=== PATIENT | male | born 2000 | race Caucasian/White ===

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

== ENCOUNTER 2023-01-25 17:59 | Emergency (ER) | payer BC, MEDICAID, OTHER ==
[~2023-01-25] VITALS: Ht 190.5 cm; Wt 99.3 kg
[~2023-01-25 17:59] MED LIST changes: -CETI-101 PO; +CETI-89 PO
[2023-01-25 19:16] LABS: SARS-CoV-2, RNA, NAAT NEGATIVE SARS CoV-2 (NEGATIVE)
[2023-01-25 19:21] LABS: INFLUENZA TYPE A Negative For Type A (NEGATIVE); INFLUENZA TYPE B Negative For Type B (NEGATIVE)
[2023-01-25 19:30] LABS: RAPID GROUP A STREP negative (NEGATIVE)
[2023-01-25] MEDS ORDERED: 0.9%NACL 1000ML 1,000 ML IV ONE (20:30)
[2023-01-25] MEDS ORDERED: ACETAMINOPHEN 500 MG TABLET PO ONE (20:30)
[2023-01-25] MEDS ORDERED: ONDANSETRON 4MG INJ IVP ONE (20:30)
[2023-01-25 20:59] LABS: BASOPHILS # (AUTO) 0.06 K/uL (0.00-0.20); BASOPHILS % (AUTO) 0.8 % (0.0-5.0); EOSINOPHILS # (AUTO) 0.36 K/uL (0.00-0.70); HEMATOCRIT 44.5 % (42-54); IMMATURE GRANULOCYTE ABSOLUTE 0.02 K/uL (0-1); LYMPHOCYTES # (AUTO) 1.6 K/uL (1.0-4.8); MEAN CORPUSCULAR HEMOGLOBIN 27.9 pg (27.0-33.0); MEAN CORPUSCULAR HGB CONC 32.6 g/dL (32.0-36.0); MEAN CORPUSCULAR VOLUME 85.6 fL (79-99); MONOCYTES # (AUTO) 0.8 K/uL (0.1-1.0); MONOCYTES % (AUTO) 10.7 % (3.0-13.0); NEUTROPHILS # (AUTO) 4.4 K/uL (1.8-7.7); NEUTROPHILS % (AUTO) 61.2 % (40.0-77.0); PLATELET COUNT (AUTO) 226 K/uL (130-400); RED CELL DISTRIBUTION WIDTH 12.7 % (11.0-15.5); WHITE BLOOD COUNT (AUTO) 7.2 K/uL (4.8-10.8)
[2023-01-25 21:00] LABS: APPEARANCE,URINE CLEAR (CLEAR); BILIRUBIN,URINE NEGATIVE (NEGATIVE); COLOR,URINE COLORLESS (YELLOW); GLUCOSE, URINE (UA) NEGATIVE (NEGATIVE); KETONES,URINE NEGATIVE (NEGATIVE); LEUKOCYTE ESTERASE ,URINE NEGATIVE Leu/uL (NEGATIVE); NITRATE,URINE NEGATIVE (NEGATIVE); OCCULT BLOOD,URINE NEGATIVE (NEGATIVE); PH,URINE 7.5 (5.0-8.0); PROTEIN,URINE NEGATIVE (NEGATIVE); UROBILINOGEN,URINE 0.2 mg/dL (0.2-1.0)
[2023-01-25 21:01] LABS: ADD UA MICROSCOPIC YES
[2023-01-25 21:02] LABS: SQUAMOUS EPITHELIAL CELL,UR RARE /HPF (0-2)
[2023-01-25 21:13] LABS: CREATININE 1.2 mg/dL (0.5-1.5); POTASSIUM 3.5 mmol/L (3.5-5.1)
[2023-01-25 21:17] LABS: ALBUMIN 4.2 g/dL (3.5-5.0); BILIRUBIN,TOTAL 0.5 mg/dL (0.2-1.0); TOTAL PROTEIN, SERUM 7.4 g/dL (6.0-8.3)
[2023-01-25] MEDS ORDERED: ALBUTEROL 0.083% 2.5 MG/3 ML INH IH ONE (21:30)
[2023-01-25] MEDS ORDERED: CEFTRIAXONE 1G VIAL IVPB ONE (21:30)
[2023-01-25 21:34] VITALS: PULSE 71; RESP 17
[2023-01-25] MEDS ORDERED: AMOX1TAB16 PO (21:49)
[2023-01-25] MEDS ORDERED: ALBU90AE2 IH (21:49)
[2023-01-25 22:00] VITALS: BP 117/70; PULSE 80; RESP 18; O2SAT 99
== END 2023-01-25 22:05 | disposition home or self-care (01) ==
LOC: EDH 17:59
DX: H66.91 Otitis media, unspecified, right ear (principal); J45.901 Unspecified asthma with (acute) exacerbation; F41.9 Anxiety disorder, unspecified; F32.A Depression, unspecified; Z20.822 Contact with and (suspected) exposure to COVID-19; Z79.899 Other long term (current) drug therapy; Z98.890 Other specified postprocedural states
CPT/HCPCS: 99284; 96365; 87635; 96361; 96375; 80053; 83690; 85025; 87880; 87804 ×2; 81001; 36415; 94640; C9803; J0696; J2405

== ENCOUNTER 2023-02-26 20:24 | Emergency (ER) | payer OTHER ==
[~2023-02-26] VITALS: Ht 190.5 cm; Wt 96.6 kg
[~2023-02-26 20:24] MED LIST changes: +ALBU90AE2 IH; +AMOX1TAB16 PO
[2023-02-26] MEDS ORDERED: SOLU-MEDROL 125MG VIAL IVP ONE (22:00)
[2023-02-26] MEDS ORDERED: BUDE52H IH (22:27)
[2023-02-26] MEDS ORDERED: METH4TAB3 PO (22:27)
[2023-02-26 22:58] VITALS: BP 114/52; PULSE 78; RESP 14; O2SAT 97
== END 2023-02-26 23:16 | disposition home or self-care (01) ==
LOC: EDH 20:24
DX: J45.901 Unspecified asthma with (acute) exacerbation (principal); F41.9 Anxiety disorder, unspecified; Z79.899 Other long term (current) drug therapy; Z98.890 Other specified postprocedural states
CPT/HCPCS: 99283; 96374; J2930

== ENCOUNTER 2023-10-13 17:17 | Emergency (ER) | payer BC ==
[~2023-10-13] VITALS: Ht 190.5 cm; Wt 95.3 kg
[~2023-10-13 17:17] MED LIST changes: -ALBU90AE2 IH; +ALBU90AE3 IH; +BUDE52H IH; +METH4TAB3 PO
[2023-10-13 17:57] LABS: APPEARANCE,URINE CLEAR (CLEAR); BILIRUBIN,URINE NEGATIVE (NEGATIVE); COLOR,URINE YELLOW (YELLOW); GLUCOSE, URINE (UA) NEGATIVE (NEGATIVE); KETONES,URINE 5 mg/dL (NEGATIVE); LEUKOCYTE ESTERASE ,URINE NEGATIVE Leu/uL (NEGATIVE); NITRATE,URINE NEGATIVE (NEGATIVE); OCCULT BLOOD,URINE NEGATIVE (NEGATIVE); PROTEIN,URINE 20 mg/dL (NEGATIVE); UROBILINOGEN,URINE 0.2 mg/dL (0.2-1.0)
[2023-10-13 17:58] LABS: ADD UA MICROSCOPIC YES
[2023-10-13 18:00] LABS: BACTERIA,URINE RARE /HPF (None Seen); MUCUS,URINE RARE LPF (None Seen); RBC,URINE 0-1 /HPF (0-1); WBC,URINE 0-1 /HPF (0-1)
[2023-10-13] MEDS: 0.9%NACL 1000ML 1,000 ML IV ONE (18:00)
[2023-10-13] MEDS: ONDANSETRON 4MG INJ IVP ONE ×2 (18:00→22:59)
[2023-10-13 18:05] LABS: AMPHET/METH SCREEN,URINE NEGATIVE (NEGATIVE); BARBITURATE SCREEN, URINE NEGATIVE (NEGATIVE); BENZODIAZEPINES SCREEN,URINE NEGATIVE (NEGATIVE); CANNABINOID SCREEN,URINE POSITIVE (NEGATIVE); COCAINE SCREEN,URINE NEGATIVE (NEGATIVE); OPIATE SCREEN,URINE NEGATIVE (NEGATIVE); PHENCYCLIDINE SCREEN,URINE NEGATIVE (NEGATIVE)
[2023-10-13 18:25] LABS: BASOPHILS # (AUTO) 0.08 K/uL (0.00-0.20); BASOPHILS % (AUTO) 1.5 % (0.0-5.0); EOSINOPHILS # (AUTO) 0.13 K/uL (0.00-0.70); EOSINOPHILS % (AUTO) 2.4 % (0.0-8.0); HEMATOCRIT 45.6 % (42-54); IMMATURE GRANULOCYTE ABSOLUTE 0.01 K/uL (0-1); LYMPHOCYTES # (AUTO) 1.9 K/uL (1.0-4.8); LYMPHOCYTES % (AUTO) 34.4 % (21.0-51.0); MEAN CORPUSCULAR HGB CONC 33.3 g/dL (32.0-36.0); MONOCYTES # (AUTO) 0.5 K/uL (0.1-1.0); MONOCYTES % (AUTO) 8.6 % (3.0-13.0); NEUTROPHILS # (AUTO) 2.9 K/uL (1.8-7.7); NEUTROPHILS % (AUTO) 52.9 % (40.0-77.0); PLATELET COUNT (AUTO) 295 K/uL (130-400); RED BLOOD CELL COUNT(AUTO) 5.63 MIL/uL (4.50-6.20); RED CELL DISTRIBUTION WIDTH 12.9 % (11.0-15.5); WHITE BLOOD COUNT (AUTO) 5.5 K/uL (4.8-10.8)
[2023-10-13 18:36] LABS: CREATININE 1.1 mg/dL (0.5-1.3); POTASSIUM 3.9 mmol/L (3.5-5.1)
[2023-10-13 18:41] LABS: ALBUMIN 4.9 g/dL (3.5-5.0); BILIRUBIN,TOTAL 0.9 mg/dL (0.2-1.0); TOTAL PROTEIN, SERUM 8.3 g/dL (6.0-8.3)
[2023-10-13] MEDS: ACETAMINOPHEN 500 MG TABLET PO ONE (19:00)
[2023-10-13] MEDS ORDERED: IOHEXOL-350 75 ML VIAL IV ONE (21:21)
[2023-10-13] MEDS ORDERED: ONDA-243 PO (22:39)
[2023-10-13 23:02] VITALS: BP 127/67; PULSE 74; RESP 18; O2SAT 94
== END 2023-10-13 23:07 | disposition home or self-care (01) ==
LOC: EDH 17:17
DX: R11.2 Nausea with vomiting, unspecified (principal); R19.7 Diarrhea, unspecified; R51.9 Headache, unspecified; F41.9 Anxiety disorder, unspecified; F32.A Depression, unspecified; Z91.048 Other nonmedicinal substance allergy status; Z79.899 Other long term (current) drug therapy; Z79.2 Long term (current) use of antibiotics; Z96.22 Myringotomy tube(s) status; Z98.890 Other specified postprocedural states
CPT/HCPCS: 99284; 74177; 96374; 96361; 82550; 80053; 80305; 83690; 85025; 36415; 96376; 81001; J7030; J2405 ×2; Q9967